=== PATIENT | female | born 1980 | race Caucasian/White ===

== ENCOUNTER 2018-09-07 10:06 | Emergency (ER) | payer OTHER ==
[2018-09-07 10:12] VITALS: TEMP 99.3; BMI 23.6
--- NOTE | 2018-09-07 11:11 | PDOC ---
History of Present Illness - General Chief Complaint: Back Pain Stated Complaint: UPPER BACK PAIN Time Seen by Provider: 09/07/18 10:16 History Source: Patient - History of Present Illness Occurred: reports: other Past History - Past Medical History Allergies/Adverse Reactions: Allergies Allergy/AdvReac Type Severity Reaction Status Date / Time No Known Allergies Allergy Verified 09/07/18 10:35 Home Medications: Ambulatory Orders Ibuprofen [Motrin -] 800 mg PO Q6H #30 tablet 09/07/18 Nitrofurantoin Monohyd/M-Cryst [Macrobid -] 100 mg PO BID #14 capsule 09/07/18 Anemia: No Asthma: No COPD: No DVT: No GI Disorders: Yes (GERD) HTN: No Liver Disease: No Seizures: No - Surgical History Appendectomy: Yes Cholecystectomy: Yes Orthopedic Surgery: Yes (rt shoulder 2013) - Immunization History Immunization Up to Date: Yes - Suicide/Smoking/Psychosocial Hx Smoking History: Never smoked Have you smoked in the past 12 months: No Number of Cigarettes Smoked Daily: 2 If you are a former smoker, when did you quit?: 15 years Hx Alcohol Use: No Drug/Substance Use Hx: No Substance Use Type: Marijuana Hx Substance Use Treatment: No Review of Systems - Review of Systems Constitutional: No: Chills, Fever Respiratory: No: Shortness of Breath Cardiac (ROS): No: Chest Pain, Lightheadedness, Palpitations ABD/GI: No: Nausea, Vomiting, Abdominal cramping : Yes: Dysuria. No: Discharge, Frequency, Flank Pain, Hematuria Musculoskeletal: Yes: Back Pain Neurological: No: Numbness, Tingling, Weakness *Physical Exam - Vital Signs Last Vital Signs Temp Pulse Resp BP Pulse Ox 99.3 F 101 H 16 98/58 L 99 09/07/18 10:10 09/07/18 10:10 09/07/18 10:10 09/07/18 10:10 09/07/18 10:10 - Physical Exam General Appearance: Yes: Appropriately Dressed. No: Apparent Distress HEENT: positive: Normal Voice Neck: positive: Supple Respiratory/Chest: positive: Lungs Clear, Normal Breath Sounds. negative: Respiratory Distress Cardiovascular: positive: Regular Rate, S1, S2 Gastrointestinal/Abdominal: positive: Soft. negative: Tender Musculoskeletal: negative: CVA Tenderness Integumentary: positive: Dry, Warm Neurologic: positive: Fully Oriented, Alert, Normal Mood/Affect Medical Decision Making - Medical Decision Making 09/07/18 11:00 38-year-old female, denies any past medical history, here with diffuse upper back pain 2 weeks, constant, and worse with palpation and when lying supine. Denies any trauma or obvious inciting factors. No cough, hemoptysis, chest pain , shortness of breath or palpitations. No obvious risk factors for DVT, PE. Patient states she's had this pain before and was given pain medication by her doctor. Patient also reports possible dysuria for 3 days with no frequency. No hematuria, flank pain, nausea, vomiting, fever or chills. States she had some antibiotic pills from a year ago and has since taken approximately 6 doses, does not remember name of meds. States dysuria persists Se exam Upper back pain Possibly MSK as very reproducible on exam, no trauma Tachy to 101 but no RF for DVT/PE, PE also unlikely given given duration of sxs and no hemoptysis, SOB, CP or palpitations -pain control -reassess Dysuria Self tx w/ abx at home (does not remember name) No e/o pyelo -ua/cx today so unreliable given current abx use 09/07/18 12:04 Pt reports feeling better w/ meds. Rpt vitals improved. UA still pending but results unreliable given current abx use. Will dc w/ macrobid. Reasons to return d/w pt. To f/u with PMD *DC/Admit/Observation/Transfer Diagnosis at time of Disposition: Upper back pain, Dysuria - Discharge Dispostion Disposition: HOME Condition at time of disposition: Improved - Prescriptions Prescriptions: Ibuprofen [Motrin -] 800 mg PO Q6H #30 tablet Nitrofurantoin Monohyd/M-Cryst [Macrobid -] 100 mg PO BID #14 capsule - Referrals Referrals: Mauricio Batista MD [Primary Care Provider] - - Patient Instructions Additional Instructions: Your back pain might be muscular but you will need to follow up with your PMD for further evaluation Take motrin as direcetd Your uri - Post Discharge Activity
[2018-09-07] MEDS ORDERED: KETOROLAC TROMETHAMINE 60 MG/2 ML VIAL IM ONE (11:12)
[2018-09-07 11:30] LABS: HCG,QUALITATIVE URINE Negative
[2018-09-07] MEDS ORDERED: KETOROLAC TROMETHAMINE 60 MG/2 ML VIAL ONE (11:36)
[2018-09-07 12:05] VITALS: BP 122/74; PULSE 92
[2018-09-07 12:32] LABS: URINE APPEARANCE Error; URINE BILIRUBIN NEGATIVE (NEGATIVE); URINE COLOR YELLOW; URINE GLUCOSE (UA) NEGATIVE (NEGATIVE); URINE KETONE NEGATIVE (NEGATIVE); URINE LEUK ESTERASE NEGATIVE (NEGATIVE); URINE NITRITE NEGATIVE (NEGATIVE); URINE PROTEIN NEGATIVE (NEGATIVE); URINE UROBILINOGEN 0.2 mg/dL (0.2-1.0)
== END 2018-09-07 12:10 | disposition home or self-care (01) ==
LOC: JERFT 10:06
PROC: 3E0233Z Introduction of Anti-inflammatory into Muscle, Percutaneous Approach (ICD-10-PCS; principal; 2018-09-07)
DX: M54.89 Other dorsalgia (principal); R30.0 Dysuria
CPT/HCPCS: 81003; 84703; 87086; 87186; 96372; 99281-25

== ENCOUNTER 2019-01-31 08:42 | Day surgery (SDC) | payer MEDICARE, OTHER ==
[2019-01-31 10:43] VITALS: BMI 21.6
--- NOTE | 2019-01-31 12:10 | PN ---
Progress Note (short form) - Note Progress Note: Post procedure, patient complained of abdominal cramping: Vitals stable, afebrile Hrt: RRR Abd: non distended, + normoactive BS, unable to reproduce the pain complaints on exam, no tympany Improving slowly Observing for now. If persistent pain, advised patient in English that she will be referred to the ER.
[2019-01-31 12:20] VITALS: TEMP 97.5
[2019-01-31 13:13] VITALS: BP 101/50; PULSE 67
--- NOTE | 2019-02-01 18:20 | PATH ---
Surgical Pathology Report Patient Name: DENNIS GONZALEZ [facility]. Rec. #: [id number] /Age/Gender: 1980 (Age: 38) / F Account: [id number] Location: ASU-ENDOSCOPY Taken: 01/31/2019 Received: 01/31/2019 Reported: 02/01/2019 Physicians: Philip Patricio D.O. Specimen(s) Received A: DUODENUM, SECOND PORTION AND BULB B: ANGULARIS AND BODY C: DISTAL ESOPHAGUS Clinical History Abdominal pain Postoperative diagnosis: Gastritis Final Diagnosis A. DUODENUM, SECOND PORTION AND BULB, BIOPSY: DUODENAL MUCOSA WITHOUT SIGNIFICANT PATHOLOGIC FINDINGS. B. STOMACH, ANGULARIS AND BODY, BIOPSY: GASTRIC BODY MUCOSA WITH MODERATE CHRONIC GASTRITIS. IMMUNOHISTOCHEMICAL STAIN FOR H. PYLORI IS NEGATIVE. C. DISTAL ESOPHAGUS, BIOPSY: SQUAMOCOLUMNAR MUCOSA WITH MILD CHRONIC INFLAMMATION AND CHANGES OF MILD REFLUX ESOPHAGITIS. NO INTESTINAL METAPLASIA OR DYSPLASIA IDENTIFIED. Electronically Signed Alicia Frankel M.D. Gross Description A. Received in formalin, labeled "second portion duodenum and bulb" are 2 turner, irregular portions of soft tissue measuring 0.2 cm. in greatest dimension. The specimens are submitted in toto in one cassette. B. Received in formalin, labeled "angularis and body" are 8 turner, irregular portions of soft tissue range in size from 0.1-0.3 cm. in greatest dimension. The specimens are submitted in toto in one cassette. C. Received in formalin, labeled "distal esophagus" are 2 turner, irregular portions of soft tissue measuring 0.2 cm. in greatest dimension. The specimens are submitted in toto in one cassette. MLSZ/01/31/2019 sanml/01/31/2019
== END 2019-01-31 12:45 | disposition home or self-care (01) ==
LOC: JASU-ENDO 08:42
PROVIDERS: ATTEND Internal Medicine Gastroenterology
PROC: 0DB68ZX Excision of Stomach, Via Natural or Artificial Opening Endoscopic, Diagnostic (ICD-10-PCS; 2019-01-31)
PROC: 0DB38ZX Excision of Lower Esophagus, Via Natural or Artificial Opening Endoscopic, Diagnostic (ICD-10-PCS; 2019-01-31)
PROC: 0DB98ZX Excision of Duodenum, Via Natural or Artificial Opening Endoscopic, Diagnostic (ICD-10-PCS; principal; 2019-01-31 11:45)
DX: K29.50 Unspecified chronic gastritis without bleeding (principal); K21.0 Gastro-esophageal reflux disease with esophagitis
CPT/HCPCS: 84703; 88305-TC; 88342-TC

== ENCOUNTER 2019-03-06 09:43 | Emergency (ER) | payer MEDICARE, OTHER ==
[2019-03-06 10:08] VITALS: BMI 21.9
[2019-03-06] MEDS ORDERED: ONDANSETRON 4 MG/2 ML VIAL IVPUSH ONE (10:22)
[2019-03-06] MEDS ORDERED: SODIUM CHLORIDE 1,000 ML IV STA (10:22)
[2019-03-06] MEDS ORDERED: ACETAMINOPHEN 1000 MG/100 ML VIAL (NON FORMULARY) IVPB ONE (10:22)
[2019-03-06] MEDS ORDERED: ACETAMINOPHEN INJECTION 100 ML IVPB ONE (10:31)
[2019-03-06] MEDS ORDERED: ONDANSETRON 4 MG/2 ML VIAL ONE (10:31)
--- NOTE | 2019-03-06 10:37 | PDOC ---
History of Present Illness - General Chief Complaint: Pain Stated Complaint: RT SIDE PAIN Time Seen by Provider: 03/06/19 10:15 History Source: Patient Exam Limitations: No Limitations - History of Present Illness Travel History: No Initial Comments: 03/06/19 11:30 39-year-old female who presents to the ED with 4 days of right upper quadrant pain radiating to her back and flank area. Patient also states fever, chills nausea and vomiting without diarrhea, recent travel, recent illness. Patient states history of cholecystectomy and appendectomy. Timing/Duration: reports: constant, getting worse Quality: reports: moderate, cramping, sharpness Abdominal Pain Onset Location: reports: RUQ, flank Pain Radiation: reports: back Activities at Onset: reports: none Aggravating Factors: improves with: None Alleviating Factors: improves with: None Past History - Travel Traveled outside of the country in the last 30 days: No Close contact w/someone who was outside of country & ill: No - Past Medical History Allergies/Adverse Reactions: Allergies Allergy/AdvReac Type Severity Reaction Status Date / Time No Known Allergies Allergy Verified 03/06/19 10:05 Home Medications: Ambulatory Orders Omeprazole 20 mg PO DAILY 01/31/19 Oxycodone HCl/Acetaminophen [Percocet 5-325 mg Tablet] 1 - 2 tab PO Q6H PRN #12 tab MDD 4 03/06/19 Sulfamethoxazole/Trimethoprim [Bactrim Ds -] 1 tab PO BID #20 tablet 03/06/19 Anemia: No Asthma: No Cancer: No Cardiac Disorders: No CVA: No COPD: No CHF: No DVT: No Dementia: No Diabetes: No GI Disorders: Yes (GERD) Disorders: No HTN: No Hypercholesterolemia: No Liver Disease: No Seizures: No - Surgical History Abdominal Surgery: No Appendectomy: Yes Cardiac Surgery: No Cholecystectomy: Yes Lung Surgery: No Neurologic Surgery: No Orthopedic Surgery: Yes (rt shoulder 2012) - Immunization History Immunization Up to Date: Yes - Psycho Social/Smoking Cessation Hx Smoking History: Never smoked Have you smoked in the past 12 months: No Number of Cigarettes Smoked Daily: 2 If you are a former smoker, when did you quit?: 15 years Information on smoking cessation initiated: No Hx Alcohol Use: No Drug/Substance Use Hx: No Substance Use Type: Marijuana Hx Substance Use Treatment: No Patient Lives Alone: No Lives with/in: spouse/SO Review of Systems - Review of Systems Able to Perform ROS?: No Is the patient limited Grenadian proficient: No Constitutional: Yes: Chills, Fever, Loss of Appetite, Malaise HEENTM: No: Symptoms Reported Respiratory: No: Symptoms reported Cardiac (ROS): No: Symptoms Reported ABD/GI: Yes: Nausea, Poor Appetite, Poor Fluid Intake, Vomiting, Abdominal cramping. No: Constipated, Diarrhea : No: Symptoms Reported Musculoskeletal: Yes: Back Pain Integumentary: No: Symptoms Reported Neurological: No: Symptoms reported *Physical Exam - Vital Signs Last Vital Signs Temp Pulse Resp BP Pulse Ox 100.5 F H 100 H 17 108/61 100 03/06/19 10:05 03/06/19 10:05 03/06/19 10:05 03/06/19 10:05 03/06/19 10:05 - Physical Exam General Appearance: Yes: Nourished, Appropriately Dressed. No: Apparent Distress HEENT: positive: EOMI Neck: positive: Normal Thyroid Respiratory/Chest: positive: Lungs Clear, Normal Breath Sounds. negative: Respiratory Distress, Accessory Muscle Use Cardiovascular: positive: Regular Rhythm, Tachycardia. negative: Murmur Gastrointestinal/Abdominal: positive: Soft, Tenderness (Right upper quadrant right flank right CVA) Musculoskeletal: positive: CVA Tenderness (R) Extremity: positive: Normal Inspection Integumentary: positive: Normal Color, Warm, Moist Neurologic: positive: Motor Strength 5/5 (Ambulatory) Heart Score/ECG Review - ECG Intrepretation Rhythm: Regular Rhythm (rate 81. nsr, no st elevation/depression, intervals are reg) ED Treatment Course - LABORATORY CBC & Chemistry Diagram: 03/06/19 10:44 03/06/19 10:44 - RADIOLOGY Radiology Studies Ordered: Category Date Time Status CHEST X-RAY PORTABLE* [RAD] Stat Radiology 03/06/19 10:21 Ordered Medical Decision Making - Medical Decision Making 03/06/19 11:35 Chief complaint: Right upper quadrant pain rating to her flank and back area for the past 4 days associated nausea vomiting fever decreased appetite. Patient has no urinary complaints Exam: Patient right CVA tenderness tachycardic febrile and right upper quadrant tenderness noted along with right upper quadrant and right flank tenderness. Patient also tachycardic and febrile. Plan: Septic work-up including lipase and urine 03/06/19 11:56 Laboratory Tests 03/06/19 03/06/19 03/06/19 10:44 10:44 10:44 WBC 14.2 H Hgb 10.9 Hct 33.3 Absolute Neuts (auto) 12.8 H Neutrophils % 90.3 H Lymphocytes % 2.4 L PT with INR 14.00 H INR 1.18 H Sodium 136 Potassium 3.0 L Chloride 104 Carbon Dioxide 25 Anion Gap 7 L Creatinine 0.8 Random Glucose 128 H Calcium 8.4 L AST 39 H ALT 172 H Alkaline Phosphatase 127 H Lipase Urine Protein Urine Ketones Urine Nitrite Ur Leukocyte Esterase Urine WBC (Auto) Urine Bacteria (Auto) Urine HCG, Qual 03/06/19 03/06/19 03/06/19 10:44 10:44 10:44 WBC Hgb Hct Absolute Neuts (auto) Neutrophils % Lymphocytes % PT with INR INR Sodium Potassium Chloride Carbon Dioxide Anion Gap Creatinine Random Glucose Calcium AST ALT Alkaline Phosphatase Lipase 40 L Urine Protein 1+ H Urine Ketones 1+ H Urine Nitrite Positive H Ur Leukocyte Esterase 2+ H Urine WBC (Auto) 88 Urine Bacteria (Auto) 1596.8 Urine HCG, Qual Negative Laboratory Tests 03/06/19 10:47 Lactic Acid 1.7 Patient order for potassium replacement along with IV ceftriaxone for positive UTI. Patient with E. coli on previous micro. Patient order for spiral CT to rule out infected stone versus other etiology 03/06/19 14:12 . Patient states feeling much better. Free fluid noted within the cul-de-sac. The uterus is somewhat prominent with no discrete mass identified. Otherwise CT of the abdomen shows no acute pathology. Patient will be discharged home with Bactrim and Percocet for pain. The patient given strict instructions on precautions along with recommendations 03/06/19 14:13 Discharge - Discharge Information Problems reviewed: Yes Clinical Impression/Diagnosis: Pyelonephritis Condition: Improved Disposition: HOME - Additional Discharge Information Prescriptions: Oxycodone HCl/Acetaminophen [Percocet 5-325 mg Tablet] 1 - 2 tab PO Q6H PRN #12 tab MDD 4 PRN Reason: Pain Sulfamethoxazole/Trimethoprim [Bactrim Ds -] 1 tab PO BID #20 tablet - Follow up/Referral - Patient Discharge Instructions Patient Printed Discharge Instructions: DI for Kidney Stones Additional Instructions: Drink at least 2 L of water on a daily basis. Take antibiotics starting tonight. If you develop worsening pain, inability to eat, or high fever , please return to the ED. Otherwise you may also take Percocet for discomfort. - Post Discharge Activity
--- NOTE | 2019-03-06 11:01 | EKG ---
Test Reason : Blood Pressure : / mmHG Vent. Rate : 081 BPM Atrial Rate : 081 BPM P-R Int : 148 ms QRS Dur : 086 ms QT Int : 352 ms P-R-T Axes : 063 077 045 degrees QTc Int : 408 ms NORMAL SINUS RHYTHM NORMAL ECG WHEN COMPARED WITH ECG OF 16-NOV-2017 11:08, T WAVE VARIATION Confirmed by DANNY VILLATORO MD ([id number]) on 03/06/2019 11:01:11 AM Referred By: Confirmed By:DANNY VILLATORO MD
[2019-03-06 11:04] LABS: BASO % 0.4 % (0-2.0); EOS % 0.1 % (0-4.5); HEMATOCRIT 33.3 % (32.4-45.2); HEMOGLOBIN 10.9 GM/dL (10.7-15.3); LYMPH % 2.4 % (8-40); MCH 28.4 pg (25.7-33.7); MCHC 32.7 g/dl (32.0-36.0); MEAN PLT VOLUME 9.3 fl (7.5-11.1); MONO % 6.8 % (3.8-10.2); NEUT % 90.3 % (42.8-82.8); PLATELET COUNT 219 K/MM3 (134-434); RBC 3.83 M/mm3 (3.60-5.2); WHITE BLOOD COUNT 14.2 K/mm3 (4.0-10.0)
[2019-03-06 11:24] LABS: INR 1.18 (0.83-1.09)
[2019-03-06 11:27] LABS: ACTIVATED PTT 34.2 SECONDS (25.2-36.5)
[2019-03-06 11:37] LABS: ALBUMIN 3.4 g/dl (3.4-5.0); BILIRUBIN,TOTAL 0.7 mg/dL (0.2-1); BLOOD UREA NITROGEN 11.6 mg/dL (7-18); CALCIUM 8.4 mg/dL (8.5-10.1); CREATININE 0.8 mg/dL (0.55-1.3); TOT PROT 7.5 g/dl (6.4-8.2)
[2019-03-06 11:48] LABS: EPI CELLS 1.5 /HPF (0-5/HPF); HYALINE CASTS 67 /lpf (0-8); PH,URINE 5.5 (5.0-8.0); URINE APPEARANCE CLOUDY; URINE BACTERIA 1596.8 /hpf (NEGATIVE); URINE BILIRUBIN NEGATIVE (NEGATIVE); URINE COLOR YELLOW; URINE GLUCOSE (UA) NEGATIVE (NEGATIVE); URINE KETONE 1+ (NEGATIVE); URINE LEUK ESTERASE 2+ (NEGATIVE); URINE NITRITE POSITIVE (NEGATIVE); URINE PROTEIN 1+ (NEGATIVE); URINE RBC 14 /hpf (0-4); URINE WBC 88 /hpf (0-5)
[2019-03-06] MEDS ORDERED: POTASSIUM CHLORIDE TABS 20 MEQ TABLET.ER (FP) PO ONE ×2 (11:48→11:51)
[2019-03-06] MEDS ORDERED: KETOROLAC TROMETHAMINE 30 MG/1 ML VIAL IVPUSH ONE (11:48)
[2019-03-06] MEDS ORDERED: KETOROLAC TROMETHAMINE 30 MG/1 ML VIAL ONE (11:51)
[2019-03-06] MEDS ORDERED: KCL 10 MEQ IVPB 10 MEQ/100 ML INFUS.BAG IVPB ONE (11:51)
[2019-03-06] MEDS ORDERED: CEFTRIAXONE 1 GM in DEXTROSE 5%-WATER - 50 ML IVPB ONE (11:51)
[2019-03-06] MEDS ORDERED: KCL 10 MEQ IVPB 10 MEQ/100 ML INFUS.BAG IVPB SCH (12:00)
[2019-03-06] MEDS ORDERED: CEFTRIAXONE 1 GM/50 ML BAG ONE (12:57)
[2019-03-06 14:32] VITALS: BP 105/65; PULSE 92; TEMP 98.3
== END 2019-03-06 14:33 | disposition home or self-care (01) ==
LOC: JER 09:43
PROC: 3E03329 Introduction of Other Anti-infective into Peripheral Vein, Percutaneous Approach (ICD-10-PCS; principal; 2019-03-06)
PROC: 3E0337Z Introduction of Electrolytic and Water Balance Substance into Peripheral Vein, Percutaneous Approach (ICD-10-PCS; 2019-03-06)
PROC: 3E033GC Introduction of Other Therapeutic Substance into Peripheral Vein, Percutaneous Approach (ICD-10-PCS; 2019-03-06)
PROC: 3E033NZ Introduction of Analgesics, Hypnotics, Sedatives into Peripheral Vein, Percutaneous Approach (ICD-10-PCS; 2019-03-06)
PROC: 3E033NZ Introduction of Analgesics, Hypnotics, Sedatives into Peripheral Vein, Percutaneous Approach (ICD-10-PCS; 2019-03-06)
DX: N12 Tubulo-interstitial nephritis, not specified as acute or chronic (principal); N39.0 Urinary tract infection, site not specified; B96.89 Other specified bacterial agents as the cause of diseases classified elsewhere; E87.6 Hypokalemia
CPT/HCPCS: 36415; 71045-TC-FY; 74176-TC; 80053; 81003; 83605; 83690; 84703; 85025; 85610; 85730; 87040; 87086; 87186; 93005; 93010; 96365; 96367; 96375; 99285-25; J0131; J7030

== ENCOUNTER 2019-07-03 09:56 | Emergency (ER) | payer MEDICARE, OTHER ==
[2019-07-03 10:15] VITALS: BP 107/60; PULSE 97; TEMP 98.8; BMI 21.6
--- NOTE | 2019-07-03 11:01 | PDOC ---
History of Present Illness - General Chief Complaint: Pain Stated Complaint: STOMACH PAIN Time Seen by Provider: 07/03/19 11:00 Past History - Past Medical History Allergies/Adverse Reactions: Allergies Allergy/AdvReac Type Severity Reaction Status Date / Time No Known Allergies Allergy Verified 07/03/19 10:12 Home Medications: Ambulatory Orders Famotidine [Pepcid] 20 mg PO BID #28 tablet 07/03/19 Ondansetron HCl [Zofran] 4 mg PO Q8H #10 tablet 07/03/19 Anemia: No Asthma: No Cancer: No Cardiac Disorders: No CVA: No COPD: No CHF: No DVT: No Dementia: No Diabetes: No GI Disorders: Yes (GERD) Disorders: No HTN: No Hypercholesterolemia: No Liver Disease: No Seizures: No - Surgical History Abdominal Surgery: No Appendectomy: Yes Cardiac Surgery: No Cholecystectomy: Yes Lung Surgery: No Neurologic Surgery: No Orthopedic Surgery: Yes (rt shoulder 2013) - Immunization History Immunization Up to Date: Yes - Psycho Social/Smoking Cessation Hx Smoking History: Never smoked Have you smoked in the past 12 months: No Number of Cigarettes Smoked Daily: 2 If you are a former smoker, when did you quit?: 15 years Information on smoking cessation initiated: No Hx Alcohol Use: No Drug/Substance Use Hx: No Substance Use Type: Marijuana Hx Substance Use Treatment: No Review of Systems - Review of Systems Constitutional: No: Chills, Fever ABD/GI: Yes: Diarrhea, Nausea, Vomiting. No: Constipated : No: Dysuria, Hematuria *Physical Exam - Vital Signs Last Vital Signs Temp Pulse Resp BP Pulse Ox 98.8 F 97 H 17 107/60 100 07/03/19 10:12 07/03/19 10:12 07/03/19 10:12 07/03/19 10:12 07/03/19 10:12 - Physical Exam 07/03/19 11:43 Sitting on chair and texting on her phone General Appearance: Yes: Appropriately Dressed. No: Apparent Distress HEENT: positive: Normal Voice. negative: Scleral Icterus (R), Scleral Icterus ( L) Neck: positive: Supple Respiratory/Chest: positive: Lungs Clear, Normal Breath Sounds. negative: Respiratory Distress Cardiovascular: positive: Regular Rate, S1, S2 Gastrointestinal/Abdominal: positive: Normal Bowel Sounds, Tender (minimal ttp to epigastrium), Soft. negative: Distended, Guarding, Rebound Musculoskeletal: negative: CVA Tenderness Integumentary: positive: Dry, Warm Neurologic: positive: Fully Oriented, Alert, Normal Mood/Affect Medical Decision Making - Medical Decision Making 07/03/19 11:01 39-year-old female, denies any past medical history here with epigastric pain with nausea,vomiting and diarrhea x several days. States pain feels like "acid " and may be worse with eating certain foods. Last time vomited was yesterday. No bright red blood per rectum fever or chills. No history of gallstones or kidney stones. see exam Possible gastritis vs gastroenteritis, less likely biliary, renal stone, uti/ pyelo or appy Stable and in NAD w/ minimal ttp to epigastrium -pain control and reassess -upreg 07/03/19 12:15 Patient improved with meds and remains well-appearing throughout ED visit. No significant tenderness to palpation on repeat abdominal exam and remains non- tender over McBurney's. Upreg neg. Dc with symptomatic control and supportive treatment. Reasons to return discussed with patient Discharge - Discharge Information Problems reviewed: Yes Clinical Impression/Diagnosis: Epigastric abdominal pain Nausea and vomiting Qualifiers: Vomiting type: unspecified Vomiting Intractability: non-intractable Qualified Code(s): R11.2 - Nausea with vomiting, unspecified Diarrhea Qualifiers: Diarrhea type: unspecified type Qualified Code(s): R19.7 - Diarrhea, unspecified Condition: Improved Disposition: HOME - Additional Discharge Information Prescriptions: Famotidine [Pepcid] 20 mg PO BID #28 tablet Ondansetron HCl [Zofran] 4 mg PO Q8H #10 tablet - Follow up/Referral - Patient Discharge Instructions Patient Printed Discharge Instructions: Gastritis Additional Instructions: Lo ms probable es que tenga jason afeccin llamada gastritis o jason afeccin viral llamada gastroenteritis [place] los medicamentos segn las indicaciones y, si los sntomas empeoran, regrese al servicio de urgencias. Print Language: HAITIAN - Post Discharge Activity Work/Back to School Note: Back to Work
[2019-07-03] MEDS ORDERED: ONDANSETRON 4 MG TABLET PO ONE (11:03)
[2019-07-03] MEDS ORDERED: ACETAMINOPHEN 325 MG TABLET (FP) PO ONE (11:04)
[2019-07-03] MEDS ORDERED: ONDANSETRON *ODT* 4 MG TABLET ONE (11:56)
[2019-07-03] MEDS ORDERED: ACETAMINOPHEN 325 MG TABLET (FP) ONE (12:12)
== END 2019-07-03 12:36 | disposition home or self-care (01) ==
LOC: JER 09:56
DX: K29.70 Gastritis, unspecified, without bleeding (principal)
CPT/HCPCS: 84703; 99283-25

== ENCOUNTER 2021-11-15 23:38 | Inpatient (IN) | payer MEDICARE, OTHER ==
[2021-11-16] MEDS ORDERED: ACETAMINOPHEN 1000 MG/100 ML BAG IVPB ONE ×3 (00:27→08:35)
[2021-11-16] MEDS ORDERED: SODIUM CHLORIDE 0.9% 500 ML INFUS.BAG IV ONE (00:30)
[2021-11-16 01:01] LABS: HEMOGLOBIN 7.8 GM/dL (10.7-15.3); MCHC 30.1 g/dl (32.0-36.0); MEAN CELL VOLUME 65.9 fl (80-96); MEAN PLT VOLUME 9.2 fl (7.5-11.1); PLATELET COUNT 321 10^3/uL (134-434); RBC 3.94 M/mm3 (3.60-5.2); RDW 24.8 % (11.6-15.6)
[2021-11-16] MEDS ORDERED: ACETAMINOPHEN INJECTION 100 ML IVPB ONE ×2 (01:02→08:32)
[2021-11-16 01:04] LABS: MCH 19.8 pg (25.7-33.7)
[2021-11-16 01:07] LABS: WHITE BLOOD COUNT 34.8 K/mm3 (4.0-10.0)
[2021-11-16 01:33] LABS: ALBUMIN 3.2 g/dl (3.4-5.0); CALCIUM 8.5 mg/dL (8.5-10.1)
[2021-11-16 01:36] LABS: CREATININE 1.3 mg/dL (0.55-1.3)
[2021-11-16 01:38] LABS: BILIRUBIN,TOTAL 0.9 mg/dL (0.2-1); TOT PROT 7.1 g/dl (6.4-8.2)
[2021-11-16 01:42] LABS: INR 2.03 (0.83-1.09); PROTHROMBIN TIME (PATIENT) 23.5 SEC (9.7-13.0)
[2021-11-16 01:46] LABS: ACTIVATED PTT 34.2 SECONDS (25.2-36.5)
[2021-11-16 02:21] LABS: VENOUS BASE EXCESS -5.2 mmol/L (-2-2); VENOUS O2 SATURATION 56.1 % (70-80); VENOUS PCO2 32.5 mmHg (38-52); VENOUS PH 7.389 (7.310-7.410)
[2021-11-16] MEDS ORDERED: VANCOMYCIN 1 GM in D5W (PRE-DOCKED) 1,000 MG/250 ML IVPB ONE (03:17)
[2021-11-16] MEDS ORDERED: PIPERACILLIN/TAZOB 4.5 GM 4.5 GM in DEXTROSE 5%-WATER 100 ML IVPB ONE (03:17)
[2021-11-16] MEDS ORDERED: PIPERACILLIN/TAZOB 4.5 GM 4.5 GM/100 ML BAG IVPB ONE (03:20)
[2021-11-16 03:31] LABS: LACTIC ACID 4.3 mmol/L (0.4-2.0)
[2021-11-16 03:58] LABS: EPI CELLS 30 /uL (0-25.1); HYALINE CASTS 1 /uL (0-3.1); URINE APPEARANCE CLOUDY; URINE BACTERIA 801 /uL (0-1359); URINE BILIRUBIN NEGATIVE (NEGATIVE); URINE COLOR YELLOW; URINE GLUCOSE (UA) NEGATIVE (NEGATIVE); URINE KETONE NEGATIVE (NEGATIVE); URINE LEUK ESTERASE 2+ (NEGATIVE); URINE NITRITE NEGATIVE (NEGATIVE); URINE PROTEIN 1+ (NEGATIVE); URINE RBC 17 /uL (0-23.9); URINE UROBILINOGEN 0.2 mg/dL (0.2-1.0); URINE WBC 134 /uL (0-25.8)
[2021-11-16] MEDS ORDERED: LACTATED RINGERS SOLUTION 1000 ML INFUS.BAG IV ONE (04:31)
[2021-11-16] MEDS ORDERED: VANCOMYCIN 1 GRAM (PRE-DOCKED) 1,000 MG/250 ML BAG IVPB ONE (04:40)
[2021-11-16] MEDS ORDERED: SODIUM CHLORIDE 1,000 ML IV STA (07:21)
[2021-11-16] MEDS ORDERED: PIPERACILLIN/TAZOB 3.375 GM 3.375 GM in DEXTROSE 5%-WATER - 50 ML IVPB SCH (13:45)
[2021-11-16] MEDS: LACTATED RINGERS SOLUTION 1,000 ML/1,000 ML INFUS.BAG IV SCH (15:20)
[2021-11-16] MEDS ORDERED: ACETAMINOPHEN 325 MG TABLET (FP) ONE (20:02)
[2021-11-16] MEDS: ACETAMINOPHEN 325 MG TABLET (FP) PO PRN (20:04)
[2021-11-16] MEDS ORDERED: PIPERACILLIN/TAZOB 3.375 GM 3.375 GM/50 ML BAG IVPB ONE (23:11)
[2021-11-16] MEDS: PIPERACILLIN/TAZOB 3.375 GM 3.375 GM in DEXTROSE 5%-WATER - 50 ML IVPB SCH (23:14)
[2021-11-17] MEDS ORDERED: ACETAMINOPHEN 325 MG TABLET (FP) ONE (02:14)
[2021-11-17] MEDS: ACETAMINOPHEN 325 MG TABLET (FP) PO PRN ×4 (02:18→22:10)
[2021-11-17] MEDS: PIPERACILLIN/TAZOB 3.375 GM 3.375 GM in DEXTROSE 5%-WATER - 50 ML IVPB SCH ×3 (09:26→23:44)
[2021-11-17] MEDS ORDERED: PIPERACILLIN/TAZOB 3.375 GM 3.375 GM in DEXTROSE 5%-WATER - 50 ML IVPB SCH (10:00)
[2021-11-17 10:22] LABS: HEMATOCRIT 29.6 % (32.4-45.2); HEMOGLOBIN 8.9 GM/dL (10.7-15.3); MCH 20.2 pg (25.7-33.7); MEAN CELL VOLUME 67.3 fl (80-96); MEAN PLT VOLUME 10.2 fl (7.5-11.1); PLATELET COUNT 311 10^3/uL (134-434); RDW 23.4 % (11.6-15.6); WHITE BLOOD COUNT 23.8 K/mm3 (4.0-10.0)
[2021-11-17 10:31] LABS: INR 1.27 (0.83-1.09); PROTHROMBIN TIME (PATIENT) 14.6 SEC (9.7-13.0)
[2021-11-17 10:38] LABS: CALCIUM 8.9 mg/dL (8.5-10.1)
[2021-11-17 10:39] LABS: ALBUMIN 2.7 g/dl (3.4-5.0); BLOOD UREA NITROGEN 13.9 mg/dL (7-18); MAGNESIUM 2.4 mg/dL (1.8-2.4)
[2021-11-17 10:42] LABS: CREATININE 0.7 mg/dL (0.55-1.3); PHOSPHOROUS 2.6 mg/dL (2.5-4.9)
[2021-11-17 10:44] LABS: ANISOCYTOSIS 3+; MACROCYTOSIS 0
[2021-11-17 10:44] LABS: BILIRUBIN,TOTAL 0.7 mg/dL (0.2-1); TOT PROT 6.2 g/dl (6.4-8.2)
[2021-11-17] MEDS ORDERED: POTASSIUM CHLORIDE TABS 20 MEQ TABLET.ER (FP) PO ONE (13:13)
[2021-11-17] MEDS: LACTATED RINGERS SOLUTION 1,000 ML/1,000 ML INFUS.BAG IV SCH (14:29)
[2021-11-17 20:11] VITALS: BMI 20.1
[2021-11-17] MEDS ORDERED: PIPERACILLIN/TAZOBACTAM 3.375 GM VIAL IVPB ONE (23:35)
[2021-11-17] MEDS ORDERED: DEXTROSE 5%-WATER - 50 ML IVPB ONE (23:35)
[2021-11-18] MEDS: LACTATED RINGERS SOLUTION 1,000 ML/1,000 ML INFUS.BAG IV SCH ×2 (01:00→08:40)
[2021-11-18] MEDS ORDERED: PIPERACILLIN/TAZOBACTAM 3.375 GM VIAL IVPB ONE ×2 (05:16→14:50)
[2021-11-18] MEDS ORDERED: DEXTROSE 5%-WATER - 50 ML IVPB ONE ×2 (05:16→14:50)
[2021-11-18] MEDS: ACETAMINOPHEN 325 MG TABLET (FP) PO PRN ×3 (06:11→21:55)
[2021-11-18] MEDS: PIPERACILLIN/TAZOB 3.375 GM 3.375 GM in DEXTROSE 5%-WATER - 50 ML IVPB SCH ×2 (06:12→15:12)
[2021-11-18 11:03] LABS: HEMATOCRIT 28.1 % (32.4-45.2); HEMOGLOBIN 8.7 GM/dL (10.7-15.3); MCH 20.6 pg (25.7-33.7); MCHC 30.8 g/dl (32.0-36.0); MEAN CELL VOLUME 66.8 fl (80-96); MEAN PLT VOLUME 9.4 fl (7.5-11.1); PLATELET COUNT 318 10^3/uL (134-434); RBC 4.21 M/mm3 (3.60-5.2); WHITE BLOOD COUNT 10.7 K/mm3 (4.0-10.0)
[2021-11-18 11:20] LABS: CHLORIDE 104 mmol/L (98-107); SODIUM 140 mmol/L (136-145)
[2021-11-18 11:22] LABS: BLOOD UREA NITROGEN 10.3 mg/dL (7-18); CALCIUM 8.6 mg/dL (8.5-10.1); CO2 27 mmol/L (21-32); GLUCOSE,RANDOM 85 mg/dL (74-106)
[2021-11-18 11:26] LABS: CREATININE 0.6 mg/dL (0.55-1.3)
[2021-11-18 11:27] LABS: ANION GAP 9 MMOL/L (8-16)
[2021-11-18 11:53] LABS: ANISOCYTOSIS 2+; MACROCYTOSIS 0; OVALOCYTE 2+; TARGET CELLS 1+
[2021-11-18] MEDS: POTASSIUM CHLORIDE TABS 20 MEQ TABLET.ER (FP) PO SCH ×2 (12:31→21:55)
[2021-11-19] MEDS: CEFAZOLIN SODIUM 2 GM in DEXTROSE 5%-WATER 100 ML IVPB SCH ×3 (01:04→18:36)
[2021-11-19 09:44] LABS: HEMOGLOBIN 8.9 GM/dL (10.7-15.3); MCH 20.6 pg (25.7-33.7); MCHC 30.7 g/dl (32.0-36.0); MEAN CELL VOLUME 67.1 fl (80-96); MEAN PLT VOLUME 9.7 fl (7.5-11.1); PLATELET COUNT 372 10^3/uL (134-434); RBC 4.32 M/mm3 (3.60-5.2); RDW 22.9 % (11.6-15.6); WHITE BLOOD COUNT 8.5 K/mm3 (4.0-10.0)
[2021-11-19 10:07] LABS: CALCIUM 8.5 mg/dL (8.5-10.1)
[2021-11-19 10:08] LABS: BLOOD UREA NITROGEN 7.4 mg/dL (7-18)
[2021-11-19 10:11] LABS: CREATININE 0.6 mg/dL (0.55-1.3); PHOSPHOROUS 2.6 mg/dL (2.5-4.9)
[2021-11-19 10:28] LABS: ANISOCYTOSIS 3+; MACROCYTOSIS 0; OVALOCYTE 1+; TARGET CELLS 1+
[2021-11-19] MEDS: ACETAMINOPHEN 325 MG TABLET (FP) PO PRN (15:30)
[2021-11-19] MEDS: POTASSIUM CHLORIDE TABS 20 MEQ TABLET.ER (FP) PO SCH ×2 (17:25→21:11)
[2021-11-19] MEDS ORDERED: ACETAMINOPHEN 1000 MG/100 ML BAG IVPB ONE (19:44)
[2021-11-20] MEDS: CEFAZOLIN SODIUM 2 GM in DEXTROSE 5%-WATER 100 ML IVPB SCH ×3 (03:39→16:59)
[2021-11-20 09:13] LABS: ALBUMIN 3.2 g/dl (3.4-5.0)
[2021-11-20 09:14] LABS: BLOOD UREA NITROGEN 10.5 mg/dL (7-18)
[2021-11-20 09:16] LABS: CREATININE 0.6 mg/dL (0.55-1.3)
[2021-11-20 09:19] LABS: BILIRUBIN,TOTAL 0.4 mg/dL (0.2-1); TOT PROT 7.9 g/dl (6.4-8.2)
[2021-11-20 09:29] LABS: HEMATOCRIT 33.1 % (32.4-45.2); HEMOGLOBIN 9.8 GM/dL (10.7-15.3); MCH 20.2 pg (25.7-33.7); MCHC 29.7 g/dl (32.0-36.0); MEAN CELL VOLUME 67.8 fl (80-96); MEAN PLT VOLUME 10.3 fl (7.5-11.1); PLATELET COUNT 550 10^3/uL (134-434); RBC 4.88 M/mm3 (3.60-5.2); RDW 23.4 % (11.6-15.6); WHITE BLOOD COUNT 8.6 K/mm3 (4.0-10.0)
[2021-11-20] MEDS ORDERED: ACETAMINOPHEN 1000 MG/100 ML BAG IVPB ONE (10:30)
[2021-11-20 11:00] LABS: ANISOCYTOSIS 3+; MACROCYTOSIS 0
[2021-11-20 14:09] VITALS: BP 103/63; PULSE 88; TEMP 98.5
== END 2021-11-20 18:32 | disposition home or self-care (01) | DRG 872 ==
LOC: JER 23:38 → JERBED 11-16 05:57 → J6S 11-17 18:47
PROVIDERS: ADMIT Internal Medicine; ATTEND Internal Medicine
PROC: 30233N1 Transfusion of Nonautologous Red Blood Cells into Peripheral Vein, Percutaneous Approach (ICD-10-PCS; principal; 2021-11-16)
DX: A41.9 Sepsis, unspecified organism (principal); D68.9 Coagulation defect, unspecified; N17.9 Acute kidney failure, unspecified; N10 Acute pyelonephritis; E87.2 Acidosis; R65.20 Severe sepsis without septic shock; D50.9 Iron deficiency anemia, unspecified; K21.9 Gastro-esophageal reflux disease without esophagitis; I95.9 Hypotension, unspecified; D72.829 Elevated white blood cell count, unspecified; F17.210 Nicotine dependence, cigarettes, uncomplicated; E87.6 Hypokalemia; B96.20 Unspecified Escherichia coli [E. coli] as the cause of diseases classified elsewhere
CPT/HCPCS: 0241U-QW; 36415; 36430; 71045-TC-FY; 71275-TC; 74177-TC; 80048; 80053; 81003; 82272; 82728; 82803; 83540; 83550; 83605; 83735; 84100; 84484; 84703; 85025; 85379; 85384; 85610; 85730; 86850; 86900; 86901; 86922; 87040; 87086; 87186; 93005; 93010; 99285-25; P9058; Q9967

== ENCOUNTER 2022-06-11 13:21 | Emergency (ER) | payer MEDICARE, OTHER ==
[2022-06-11 13:52] VITALS: BP 127/75; PULSE 106; RESP 18; TEMP 98.2; BMI 21.7
[2022-06-11] MEDS ORDERED: ACETAMINOPHEN 500 MG TABLET (FP) ONE (16:47)
[2022-06-11] MEDS ORDERED: ACETAMINOPHEN 500 MG TABLET (FP) PO ONE (16:51)
== END 2022-06-11 17:32 | disposition home or self-care (01) ==
LOC: JERFT 13:21
DX: M71.21 Synovial cyst of popliteal space [Baker], right knee (principal)
CPT/HCPCS: 93971-TC; 99284-25

== ENCOUNTER 2023-06-09 10:11 | Emergency (ER) | payer MEDICARE, OTHER ==
[2023-06-09 10:19] VITALS: BP 110/41; PULSE 86; RESP 18; TEMP 98.3; BMI 22.6
[2023-06-09] MEDS ORDERED: ONDANSETRON 4 MG/2 ML VIAL ONE (12:09)
[2023-06-09] MEDS: ONDANSETRON 4 MG/2 ML VIAL IVPUSH ONE (12:26)
[2023-06-09] MEDS: morphine CARPU-JECT 2 MG/1 ML DISP.SYRIN IVPUSH ONE (12:26)
[2023-06-09] MEDS: SODIUM CHLORIDE 0.9% 500 ML INFUS.BAG IV ONE (12:26)
[2023-06-09 12:42] LABS: BASO % 1.1 % (0-2.0); EOS % 0.9 % (0-4.5); HEMATOCRIT 34.4 % (32.4-45.2); HEMOGLOBIN 10.6 GM/dL (10.7-15.3); LYMPH % 23.9 % (8-40); MCH 24.4 pg (25.7-33.7); MCHC 30.9 g/dl (32.0-36.0); MEAN PLT VOLUME 9.2 fl (7.5-11.1); MONO % 11.3 % (3.8-10.2); NEUT % 62.8 % (42.8-82.8); PLATELET COUNT 331 10^3/uL (134-434); RBC 4.35 M/mm3 (3.60-5.2); RDW 16.9 % (11.6-15.6); WHITE BLOOD COUNT 5.5 K/mm3 (4.0-10.0)
[2023-06-09 13:01] LABS: POTASSIUM 4.6 mmol/L (3.5-5.1)
[2023-06-09 13:03] LABS: CALCIUM 9.2 mg/dL (8.5-10.1)
[2023-06-09 13:04] LABS: BLOOD UREA NITROGEN 12.6 mg/dL (7-18)
[2023-06-09 13:07] LABS: CREATININE 0.9 mg/dL (0.55-1.3)
[2023-06-09 13:08] LABS: BILIRUBIN,TOTAL 0.5 mg/dL (0.2-1); TOT PROT 8.3 g/dl (6.4-8.2)
[2023-06-09 13:35] LABS: URINE APPEARANCE CLEAR; URINE BILIRUBIN NEGATIVE (NEGATIVE); URINE COLOR YELLOW; URINE GLUCOSE (UA) NEGATIVE (NEGATIVE); URINE KETONE NEGATIVE (NEGATIVE); URINE LEUK ESTERASE NEGATIVE (NEGATIVE); URINE NITRITE NEGATIVE (NEGATIVE); URINE PROTEIN NEGATIVE (NEGATIVE)
[2023-06-09] MEDS ORDERED: CYCLOBENZAPRINE HCL 10 MG TABLET (FP) ONE (15:40)
[2023-06-09] MEDS ORDERED: KETOROLAC TROMETHAMINE 30 MG/1 ML VIAL ONE (15:40)
[2023-06-09] MEDS ORDERED: LIDOCAINE 4% PATCH TP ONE (15:40)
[2023-06-09] MEDS: CYCLOBENZAPRINE HCL 10 MG TABLET (FP) PO ONE (15:47)
[2023-06-09] MEDS: KETOROLAC TROMETHAMINE 30 MG/1 ML VIAL IVPB ONE (15:47)
[2023-06-09] MEDS: LIDOCAINE 5% TOPICAL PATCH TP ONE (15:48)
[2023-06-09] MEDS ORDERED: LIDOCAINE PATCH REMOVAL MC SCH (22:00)
== END 2023-06-09 16:26 | disposition home or self-care (01) ==
LOC: JER 10:11
PROC: 3E0333Z Introduction of Anti-inflammatory into Peripheral Vein, Percutaneous Approach (ICD-10-PCS; principal; 2023-06-09)
PROC: 3E033GC Introduction of Other Therapeutic Substance into Peripheral Vein, Percutaneous Approach (ICD-10-PCS; 2023-06-09)
PROC: 3E033GC Introduction of Other Therapeutic Substance into Peripheral Vein, Percutaneous Approach (ICD-10-PCS; 2023-06-09)
DX: R10.11 Right upper quadrant pain (principal); R10.13 Epigastric pain; R11.2 Nausea with vomiting, unspecified
CPT/HCPCS: 36415; 71046-TC-FY; 76705-TC; 80053; 81003; 83690; 84703; 85025; 87086; 99285-25

== ENCOUNTER 2023-11-23 09:53 | Emergency (ER) | payer MEDICARE, OTHER ==
[2023-11-23 10:01] VITALS: BP 107/68; PULSE 74; RESP 18; TEMP 97.6; BMI 21.7
[2023-11-23] MEDS ORDERED: ACETAMINOPHEN INJECTION 100 ML IVPB ONE (11:34)
[2023-11-23] MEDS ORDERED: METOCLOPRAMIDE HCL INJECTION 10 MG/2 ML VIAL ONE (11:34)
[2023-11-23] MEDS ORDERED: FAMOTIDINE 20 MG/50 ML IVPB 20 MG/50 ML MG IVPB ONE (11:34)
[2023-11-23 11:40] LABS: BASO % 1.1 % (0-2.0); EOS % 1.1 % (0-4.5); HEMATOCRIT 33.6 % (32.4-45.2); HEMOGLOBIN 10.3 GM/dL (10.7-15.3); LYMPH % 23.3 % (8-40); MCH 22.6 pg (25.7-33.7); MCHC 30.8 g/dl (32.0-36.0); MEAN CELL VOLUME 73.4 fl (80-96); MEAN PLT VOLUME 9.1 fl (7.5-11.1); MONO % 7.1 % (3.8-10.2); NEUT % 67.4 % (42.8-82.8); PLATELET COUNT 279 10^3/uL (134-434); RBC 4.57 M/mm3 (3.60-5.2); RDW 22.1 % (11.6-15.6); WHITE BLOOD COUNT 5.1 K/mm3 (4.0-10.0)
[2023-11-23] MEDS: ACETAMINOPHEN 1000 MG/100 ML BAG IVPB ONE (11:45)
[2023-11-23] MEDS: SODIUM CHLORIDE 0.9% 500 ML INFUS.BAG IV ONE (11:45)
[2023-11-23] MEDS: FAMOTIDINE 20 MG/50 ML IVPB 20 MG/50 ML MG IVPB ONE (11:46)
[2023-11-23] MEDS: METOCLOPRAMIDE HCL INJECTION 10 MG/2 ML VIAL IVPB ONE (11:46)
[2023-11-23 11:58] LABS: POTASSIUM 3.5 mmol/L (3.5-5.1)
[2023-11-23 12:02] LABS: CALCIUM 9.2 mg/dL (8.5-10.1)
[2023-11-23 12:03] LABS: ALBUMIN 4.1 g/dl (3.4-5.0); BLOOD UREA NITROGEN 9.4 mg/dL (7-18); MAGNESIUM 2.5 mg/dL (1.8-2.4)
[2023-11-23 12:06] LABS: CREATININE 0.7 mg/dL (0.55-1.3); PHOSPHOROUS 2.9 mg/dL (2.5-4.9)
[2023-11-23 12:07] LABS: BILIRUBIN,TOTAL 0.5 mg/dL (0.2-1); TOT PROT 8.5 g/dl (6.4-8.2)
[2023-11-23 12:14] LABS: ANISOCYTOSIS 1+; MACROCYTOSIS 0; OVALOCYTE 2+; TEAR DROP CELLS 0
[2023-11-23 13:18] LABS: EPI CELLS >36 /uL (0-25.1); HYALINE CASTS 1 /uL (0-3.1); PH,URINE 6.5 (5.0-8.0); URINE APPEARANCE CLOUDY; URINE BACTERIA 1604 /uL (0-1359); URINE BILIRUBIN NEGATIVE (NEGATIVE); URINE COLOR YELLOW; URINE GLUCOSE (UA) NEGATIVE (NEGATIVE); URINE KETONE NEGATIVE (NEGATIVE); URINE LEUK ESTERASE NEGATIVE (NEGATIVE); URINE NITRITE NEGATIVE (NEGATIVE); URINE PROTEIN TRACE (NEGATIVE); URINE RBC 20 /uL (0-23.9); URINE UROBILINOGEN 0.2 mg/dL (0.2-1.0); URINE WBC 21 /uL (0-25.8)
[2023-11-23 14:51] LABS: URINE APPEARANCE CLEAR; URINE BILIRUBIN NEGATIVE (NEGATIVE); URINE COLOR YELLOW; URINE GLUCOSE (UA) NEGATIVE (NEGATIVE); URINE KETONE 1+ (NEGATIVE); URINE LEUK ESTERASE NEGATIVE (NEGATIVE); URINE NITRITE NEGATIVE (NEGATIVE); URINE PROTEIN NEGATIVE (NEGATIVE); URINE UROBILINOGEN 0.2 mg/dL (0.2-1.0)
== END 2023-11-23 16:56 | disposition home or self-care (01) ==
LOC: JER 09:53
PROC: 3E033GC Introduction of Other Therapeutic Substance into Peripheral Vein, Percutaneous Approach (ICD-10-PCS; principal; 2023-11-23)
PROC: 3E033GC Introduction of Other Therapeutic Substance into Peripheral Vein, Percutaneous Approach (ICD-10-PCS; 2023-11-23)
PROC: 3E033NZ Introduction of Analgesics, Hypnotics, Sedatives into Peripheral Vein, Percutaneous Approach (ICD-10-PCS; 2023-11-23)
DX: N12 Tubulo-interstitial nephritis, not specified as acute or chronic (principal); R11.2 Nausea with vomiting, unspecified; R19.7 Diarrhea, unspecified; R10.13 Epigastric pain; Z20.822 Contact with and (suspected) exposure to COVID-19
CPT/HCPCS: 0241U-QW; 36415; 80053; 81003; 83690; 83735; 84100; 84484; 84703; 85025; 87086; 93005; 93010; 99284-25; J0131

== ENCOUNTER 2024-02-23 12:02 | Emergency (ER) | payer OTHER, MEDICARE ==
[2024-02-23 12:14] VITALS: BP 115/76; PULSE 86; RESP 16; TEMP 98.2; BMI 21.1
[2024-02-23] MEDS ORDERED: LIDOCAINE 4% PATCH TP ONE (13:22)
[2024-02-23] MEDS ORDERED: KETOROLAC TROMETHAMINE 30 MG/1 ML VIAL ONE (13:22)
[2024-02-23] MEDS: LIDOCAINE 5% TOPICAL PATCH TP ONE (13:26)
[2024-02-23] MEDS: KETOROLAC TROMETHAMINE 30 MG/1 ML VIAL IM ONE (13:26)
[2024-02-23] MEDS ORDERED: LIDOCAINE PATCH REMOVAL MC ONE (22:00)
== END 2024-02-23 14:14 | disposition home or self-care (01) ==
LOC: JERFT 12:02
PROC: 3E0233Z Introduction of Anti-inflammatory into Muscle, Percutaneous Approach (ICD-10-PCS; principal; 2024-02-23)
DX: M62.838 Other muscle spasm (principal); R07.89 Other chest pain; M54.2 Cervicalgia; V43.52XA Car driver injured in collision with other type car in traffic accident, initial encounter; Y92.410 Unspecified street and highway as the place of occurrence of the external cause
CPT/HCPCS: 71046-TC-FY; 71111-TC-FY; 72050-TC-FY; 99284-25

== ENCOUNTER 2024-03-12 15:42 | Emergency (ER) | payer MEDICARE, OTHER ==
[2024-03-12 15:46] VITALS: BP 107/78; PULSE 102; RESP 18; TEMP 97.9; BMI 20.9
[2024-03-12] MEDS: ONDANSETRON 4 MG/2 ML VIAL IVPUSH ONE ×2 (16:50→18:37)
[2024-03-12] MEDS: SODIUM CHLORIDE 0.9% 500 ML INFUS.BAG IV ONE (16:50)
[2024-03-12] MEDS ORDERED: ONDANSETRON 4 MG/2 ML VIAL ONE ×2 (17:05→18:24)
[2024-03-12 17:07] LABS: EOS % 0.7 % (0-4.5); HEMOGLOBIN 12.9 GM/dL (10.7-15.3); MCH 25.7 pg (25.7-33.7); MCHC 32.3 g/dl (32.0-36.0); MEAN CELL VOLUME 79.5 fl (80-96); MEAN PLT VOLUME 8.4 fl (7.5-11.1); MONO % 9.7 % (3.8-10.2); NEUT % 71.6 % (42.8-82.8); PLATELET COUNT 342 10^3/uL (134-434); RBC 5.03 M/mm3 (3.60-5.2); RDW 19.3 % (11.6-15.6); WHITE BLOOD COUNT 6.7 K/mm3 (4.0-10.0)
[2024-03-12 17:22] LABS: POTASSIUM 4.8 mmol/L (3.5-5.1)
[2024-03-12 17:25] LABS: ALBUMIN 4.6 g/dl (3.4-5.0); BLOOD UREA NITROGEN 14.2 mg/dL (7-18); CALCIUM 9.9 mg/dL (8.5-10.1); MAGNESIUM 2.1 mg/dL (1.8-2.4)
[2024-03-12 17:28] LABS: CREATININE 0.8 mg/dL (0.55-1.3)
[2024-03-12 17:30] LABS: BILIRUBIN,TOTAL 0.6 mg/dL (0.2-1); TOT PROT 8.9 g/dl (6.4-8.2)
[2024-03-12] MEDS ORDERED: ACETAMINOPHEN INJECTION 100 ML ONE (18:24)
[2024-03-12] MEDS: ACETAMINOPHEN 1000 MG/100 ML BAG IVPB ONE (18:37)
== END 2024-03-12 20:04 | disposition home or self-care (01) ==
LOC: JER 15:42
PROC: 3E033NZ Introduction of Analgesics, Hypnotics, Sedatives into Peripheral Vein, Percutaneous Approach (ICD-10-PCS; principal; 2024-03-12)
PROC: 3E033GC Introduction of Other Therapeutic Substance into Peripheral Vein, Percutaneous Approach (ICD-10-PCS; 2024-03-12)
PROC: 3E033GC Introduction of Other Therapeutic Substance into Peripheral Vein, Percutaneous Approach (ICD-10-PCS; 2024-03-12)
DX: K52.9 Noninfective gastroenteritis and colitis, unspecified (principal); R11.10 Vomiting, unspecified; R10.13 Epigastric pain
CPT/HCPCS: 36415; 80053; 83690; 83735; 85025; 96374; 96375; 96376; 99284-25; J0131